=== PATIENT | male | born 1960 | race Asian ===

== ENCOUNTER → 2021-02-13 | Outpatient (CLI) | payer BC ==
[~2021-02-13] VITALS: Ht 175.3 cm; Wt 75.4 kg
[~2021-02-13] MED LIST: NO HOME MEDICATIONS; TYLENOL W/COD1 UDTAB PO
[2021-02-13 06:54] VITALS: BP 116/78; PULSE 64
[2021-02-13 07:45] VITALS: BP 129/81; PULSE 64
== END ==
LOC: COL.RAD 06:30
DX: M51.16 Intervertebral disc disorders with radiculopathy, lumbar region (principal)
CPT/HCPCS: J3301

== ENCOUNTER 2023-12-27 23:12 | Emergency (ER) | payer OTHER ==
[~2023-12-27] VITALS: Ht 177.8 cm; Wt 75.0 kg
[2023-12-27 23:18] VITALS: TEMP 98.1
[2023-12-27 23:50] LABS: COLLECTION METHOD CLEAN CATCH
[2023-12-27 23:54] LABS: PH 6.5 (5.0-8.5); URINE APPEARANCE CLEAR (CLEAR/HAZY); URINE BLOOD NEGATIVE (NEGATIVE); URINE COLOR YELLOW (YELLOW); URINE GLUCOSE NEGATIVE (NEGATIVE); URINE KETONE NEGATIVE (NEGATIVE); URINE NITRATE NEGATIVE (NEGATIVE); URINE PROTEIN(semi-quant) NEGATIVE (NEGATIVE); URINE UROBILINOGEN 0.2 E.U/dL (0.2-1.0)
[2023-12-28] MEDS ORDERED: HYDROCORTISONE 1% TP ONE (00:15)
[2023-12-28 00:42] VITALS: BP 121/77; PULSE 58
== END 2023-12-28 00:42 | disposition home or self-care (01) ==
LOC: COL.ER 23:12
PROVIDERS: Emergency Medicine
DX: N48.1 Balanitis (principal); L27.1 Localized skin eruption due to drugs and medicaments taken internally